=== PATIENT | female | born 1990 | race Asian ===

== ENCOUNTER 2020-09-18 06:41 | Inpatient (IN) | payer OTHER ==
[~2020-09-18] VITALS: Ht 165.1 cm; Wt 60.9 kg
[2020-09-18 07:30] VITALS: BP 120/78
[2020-09-18] MEDS ORDERED: ONDANSETRON 2MG/ML, 2ML IVPush PRN (08:00)
[2020-09-18] MEDS ORDERED: OXYTOCIN 30U/ 0.9% NaCL 500ML 500 ML IV PRN ×2 (08:00→09:30)
[2020-09-18] MEDS ORDERED: TERBUTALINE 1 MG/ML, 1ML SQ PRN (08:00)
[2020-09-18] MEDS ORDERED: FENTANYL PF 100 MCG/2ML IV PRN (08:00)
[2020-09-18] MEDS ORDERED: CALCIUM CARBONATE 500 MG TAB.CHEW PO PRN (08:00)
[2020-09-18] MEDS ORDERED: TERBUTALINE 1 MG/ML, 1ML IVPush PRN (08:00)
[2020-09-18] MEDS ORDERED: FENTANYL PF 100 MCG/2ML IVPush PRN (08:00)
[2020-09-18] MEDS ORDERED: OXYTOCIN 30U/ 0.9% NaCL 500ML 500 ML IV ONE (08:00)
[2020-09-18] MEDS ORDERED: PLEASE ENTER HEIGHT AND WEIGHT MC SCH (08:30)
[2020-09-18 08:34] LABS: BASOPHILS % (AUTO) 1 % (0-1); EOSINOPHILS % (AUTO) 1 % (1-7); LYMPHOCYTES % (AUTO) 23 % (22-44); MEAN CORPUSCULAR HEMOGLOBIN 32.9 pg (27.0-34.8); MEAN CORPUSCULAR HGB CONC 34.2 g/dL (32.4-35.8); MEAN PLATELET VOLUME 8.7 fL (7.4-10.4); MONOCYTES % (AUTO) 10 % (2-9); NEUTROPHILS % (AUTO) 67 % (42-75); PLATELET COUNT 229 x10^3/uL (130-400); RED BLOOD COUNT 3.85 x10^6/uL (3.82-5.3); RED CELL DISTRIBUTION WIDTH 13.1 % (9.6-15.2)
[2020-09-18] MEDS ORDERED: PLEASE ENTER ALLERGIES MC SCH (09:00)
[2020-09-18] MEDS: D5%-LACTATED RINGERS 1,000 ML IV SCH ×2 (10:00→18:00)
[2020-09-18] MEDS: LACTATED RINGERS 1,000 ML IV SCH ×3 (10:00→18:00)
[2020-09-18 12:00] VITALS: BP 117/79
[2020-09-18] MEDS ORDERED: NEWBORN KIT ONE (12:08)
[2020-09-18] MEDS ORDERED: FENTANYL/BUPIV./NS/PF 250 ML EPIDCONT ONE (16:27)
[2020-09-18] MEDS ORDERED: BUPIVACAINE 0.25% ONE (16:27)
[2020-09-18] MEDS ORDERED: FENTANYL/BUPIV./NS/PF 250 ML EPIDCONT SCH (16:30)
[2020-09-18] MEDS ORDERED: LACTATED RINGERS 1,000 ML IVBOLUS PRN (16:30)
[2020-09-18] MEDS ORDERED: EPHEDRINE 50 MG/ML, 1ML IVPush PRN (16:30)
[2020-09-18] MEDS ORDERED: NALOXONE 0.4 MG/ML, 1ML IVPush PRN (16:30)
[2020-09-18] MEDS ORDERED: ACETAMINOPHEN 500 MG TABLET ONE (21:58)
[2020-09-18] MEDS ORDERED: ACETAMINOPHEN 500 MG TABLET PO ONE (22:00)
[2020-09-18] MEDS ORDERED: AMPICILLIN 2 GM in SODIUM CHLORIDE 0.9% 100 ML IV ONE (22:24)
[2020-09-18] MEDS ORDERED: GENTAMICIN 0 MG in SODIUM CHLORIDE 0.9% 100 ML IV SCH (22:30)
[2020-09-18] MEDS ORDERED: GENTAMICIN PER PHARMACY MC STA (22:40)
[2020-09-18] MEDS: OXYTOCIN 30U/ 0.9% NaCL 500ML 500 ML IV SCH (22:52)
[2020-09-18] MEDS ORDERED: GENTAMICIN 120 MG in SODIUM CHLORIDE 0.9% 50 ML IV ONE (23:00)
[2020-09-18] MEDS ORDERED: SIMETHICONE 80 MG CHEW TAB PO PRN (23:00)
[2020-09-18] MEDS ORDERED: CARBOPROST TROMETHAMINE 250 MCG/ML, 1ML IM PRN (23:00)
[2020-09-18] MEDS ORDERED: OXYcodone IR 5MG TABLET PO PRN (23:00)
[2020-09-18] MEDS ORDERED: PHARMACOKINETIC CONSULTATION MC ONE (23:00)
[2020-09-18] MEDS ORDERED: GLYCERIN ADULT SUPP PR PRN (23:00)
[2020-09-18] MEDS ORDERED: OXYcodone/APAP 5/325MG TABLET PO PRN (23:00)
[2020-09-18] MEDS ORDERED: METHYLERGONOVINE 0.2 MG/ML IM PRN (23:00)
[2020-09-18] MEDS ORDERED: ONDANSETRON 2MG/ML, 2ML IV PRN (23:00)
[2020-09-18] MEDS ORDERED: ACETAMINOPHEN 325 MG TABLET PO PRN (23:00)
[2020-09-18] MEDS ORDERED: METOCLOPRAMIDE 5 MG/ML, 2ML IV PRN (23:00)
[2020-09-18] MEDS ORDERED: PHARMACOKINETIC MONITORING MC PRN (23:00)
[2020-09-18] MEDS ORDERED: MISOPROSTOL 200 MCG TABLET PO PRN (23:00)
[2020-09-18] MEDS ORDERED: BISACODYL 10 MG SUPP PR PRN (23:00)
[2020-09-19] MEDS: LACTATED RINGERS 1,000 ML IV SCH ×4 (00:30→18:00)
[2020-09-19 00:45] VITALS: BP 111/71
[2020-09-19] MEDS: D5%-LACTATED RINGERS 1,000 ML IV SCH ×3 (02:00→18:00)
[2020-09-19 04:41] VITALS: BP 111/64
[2020-09-19] MEDS: IBUPROFEN 600 MG TABLET PO PRN ×4 (06:39→23:45)
[2020-09-19 06:52] LABS: BASOPHILS % (AUTO) 0 % (0-1); EOSINOPHILS % (AUTO) 0 % (1-7); LYMPHOCYTES % (AUTO) 12 % (22-44); MEAN CORPUSCULAR HEMOGLOBIN 32.9 pg (27.0-34.8); MEAN CORPUSCULAR HGB CONC 34.1 g/dL (32.4-35.8); MEAN PLATELET VOLUME 8.8 fL (7.4-10.4); MONOCYTES % (AUTO) 5 % (2-9); NEUTROPHILS % (AUTO) 83 % (42-75); PLATELET COUNT 186 x10^3/uL (130-400); RED BLOOD COUNT 3.56 x10^6/uL (3.82-5.3); RED CELL DISTRIBUTION WIDTH 13.1 % (9.6-15.2)
[2020-09-19 08:00] VITALS: BP 117/72
[2020-09-19] MEDS: OXYTOCIN 30U/ 0.9% NaCL 500ML 500 ML IV SCH ×2 (09:00→19:00)
[2020-09-19] MEDS: PRENATAL VIT/IRON/FA 1 EACH TABLET PO SCH (09:00)
[2020-09-19 12:13] VITALS: BP 116/74
[2020-09-19 16:15] VITALS: BP 110/73
[2020-09-19 20:00] VITALS: BP 114/68
[2020-09-19] MEDS: DOCUSATE 100 MG CAPSULE PO PRN (20:27)
[2020-09-20] MEDS: D5%-LACTATED RINGERS 1,000 ML IV SCH (02:00)
[2020-09-20] MEDS: LACTATED RINGERS 1,000 ML IV SCH (02:00)
[2020-09-20] MEDS: OXYTOCIN 30U/ 0.9% NaCL 500ML 500 ML IV SCH (05:00)
[2020-09-20 08:15] VITALS: BP 112/73
[2020-09-20] MEDS ORDERED: IBUP-1222 PO (09:50)
[2020-09-20] MEDS: DOCUSATE 100 MG CAPSULE PO PRN (10:36)
[2020-09-20] MEDS: PRENATAL VIT/IRON/FA 1 EACH TABLET PO SCH (10:36)
== END 2020-09-20 17:15 | disposition home or self-care (01) | DRG 807 ==
LOC: LDOP 06:41 → LDIP 08:00 → 2NW 09-19 00:42
PROVIDERS: ADMIT Student in an Organized Health Care Education/Training Program; ATTEND Student in an Organized Health Care Education/Training Program
PROC: 10E0XZZ Delivery of Products of Conception, External Approach (ICD-10-PCS; principal; 2020-09-18)
PROC: 0UQMXZZ Repair Vulva, External Approach (ICD-10-PCS; 2020-09-18)
PROC: 3E0R3BZ Introduction of Anesthetic Agent into Spinal Canal, Percutaneous Approach (ICD-10-PCS; 2020-09-18)
PROC: 00HU33Z Insertion of Infusion Device into Spinal Canal, Percutaneous Approach (ICD-10-PCS; 2020-09-18)
DX: O41.1230 Chorioamnionitis, third trimester, not applicable or unspecified (principal); Z37.0 Single live birth; O76 Abnormality in fetal heart rate and rhythm complicating labor and delivery; Z3A.38 38 weeks gestation of pregnancy; Z80.0 Family history of malignant neoplasm of digestive organs; Z80.3 Family history of malignant neoplasm of breast; Z82.49 Family history of ischemic heart disease and other diseases of the circulatory system; O70.0 First degree perineal laceration during delivery; Z20.822 Contact with and (suspected) exposure to COVID-19
CPT/HCPCS: 36415; 85025; 86592; 86850; 86900; 87635; 89060; G0378; J0290; J1580; J2590; Q0114